=== PATIENT | female | born 1965 | race African-American/Black ===

== ENCOUNTER 2017-03-18 15:24 | Emergency (ER) | payer OTHER ==
[2017-03-18] MEDS ORDERED: Ondansetron ODT 4 MG TAB ONE (15:56)
== END 2017-03-18 15:58 | disposition home or self-care (01) ==
LOC: NAV ERS 15:24
DX: R11.2 Nausea with vomiting, unspecified (principal); R19.7 Diarrhea, unspecified; Z79.899 Other long term (current) drug therapy
CPT/HCPCS: 99283; Q0162

== ENCOUNTER 2022-05-15 16:26 | Emergency (ER) | payer OTHER, SELFPAY ==
[2022-05-15 17:05] LABS: White Blood Cell (WBC) Count 4.5 thou/uL (4.8-10.8)
[2022-05-15 17:06] LABS: #Basophils 0.1 thou/uL (0.0-0.2); #Lymphocytes 0.6 thou/uL (1.20-3.40); #Monocytes 0.5 thou/uL (0.11-0.59); #Neutrophils 3.4 thou/uL (1.40-6.50); %Basophils 1.4 % (0.0-1.0); %Eosinophils 0.6 % (0.0-10.0); %Lymphocytes 12.7 % (21.0-51.0); %Monocytes 10.1 % (0.0-10.0); %Neutrophils 75.2 % (42.0-75.0); Hemoglobin 10.6 g/dL (12.0-16.0); Manual Diff?? NO; Mean Corpuscular HGB CONC 27.7 g/dL (32.0-36.0); Mean Corpuscular Hemoglobin 25.1 pg (27.0-31.0); Mean Corpuscular Volume 90.6 fL (78.0-98.0); Mean Platelet Volume 7.4 fL (7.4-10.4); Platelet Count 209 thou/uL (130-400); Red Blood Cell (RBC) Count 4.21 mill/uL (4.20-5.40)
[2022-05-15 17:07] LABS: Microcytosis SLIGHT = 6-15 cells (100X) (0-5/hpf); Platelet Morphology Comment Appears Adequate
[2022-05-15] MEDS ORDERED: cefTRIAXone\\ROCEPHIN 2 GM VIAL ONE ×2 (17:14→17:17)
[2022-05-15] MEDS ORDERED: Azithromycin 500 MG VIAL ONE ×2 (17:14→17:18)
[2022-05-15] MEDS ORDERED: Sodium Chloride 0.9% 100 ML ONE (17:14)
[2022-05-15] MEDS ORDERED: Sodium Chloride 0.9% 250 ML 250 ML ONE (17:14)
[2022-05-15 17:16] LABS: ALT (SGPT) 11 U/L (8-55); AST (SGOT) 16 U/L (5-34); Albumin 3.1 g/dL (3.5-5.0); Alkaline Phosphatase 119 U/L (40-110); Anion Gap 14 mmol/L (10-20); BUN (Urea Nitrogen) 14 mg/dL (9.8-20.1); Bilirubin, Total 0.5 mg/dL (0.2-1.2); Calc. Creatinine Clearance 0 mL/min (70-130); Calcium 8.7 mg/dL (7.8-10.44); Carbon Dioxide 28 mmol/L (22-29); Chloride 103 mmol/L (98-107); Estimated GFR 83; Globulin 4.8 g/dL (2.4-3.5); Glucose 100 mg/dL (70-105); Potassium 4.3 mmol/L (3.5-5.1); Protein, Total 7.9 g/dL (6.0-8.3); Sodium 141 mmol/L (136-145)
[2022-05-15] MEDS ORDERED: Furosemide 40 MG/4 ML VIAL ONE (17:55)
[2022-05-15] MEDS ORDERED: Nitroglycerin 2% Ointment 1 INCH/1 GM Packet ONE ×2 (17:55→17:56)
[2022-05-15] MEDS ORDERED: Furosemide 20 MG/2 ML VIAL ONE (17:55)
[2022-05-15] MEDS ORDERED: Aspirin Chewable 81 MG TAB ONE (18:07)
[2022-05-15 18:18] LABS: SARS-CoV-2 NAA Rapid Test Not Detected (NotDetected)
== END 2022-05-15 23:50 | disposition short-term general hospital (02) ==
LOC: NAV ERS 16:26
DX: I50.9 Heart failure, unspecified (principal); D64.9 Anemia, unspecified; Z20.822 Contact with and (suspected) exposure to COVID-19
CPT/HCPCS: 71045; 80053; 83605; 83880; 84484; 85025; 87040; 93005; 94760; 96365; 96366; 96375; J0456; J0696; J1940; J3490; J7050; U0002